=== PATIENT | female | born 1980 | race Caucasian/White ===

== ENCOUNTER → 2017-06-05 | Outpatient (CLI) | payer BC ==
--- NOTE | 2017-06-05 16:10 | RAD ---
Thyroid ultrasound, 06/05/2017: History: Thyroid nodules, autoimmune thyroiditis The right lobe of the gland measures 5.9 x 1.3 x 1.2 cm while the left lobe of the gland measures 5.2 x 1.2 x 1.1 cm. The thyroid echo pattern is mildly heterogeneous. In the posterior aspect of the lower pole of the right lobe of the gland there is a faint smooth oval-shaped nodule measuring approximately 1.6 cm in length. It is only slightly hypoechoic relative to the remainder of the gland. It is wider than tall. It is of similar size when compared to the 11/29/2015 exam at which time it was measured at 1.7 cm. No calcifications or highly suspicious features are seen. There are 3 additional smaller smooth nodules in the left lobe of the gland. The largest of these lies inferomedially along the margin of the gland and measures 7 x 4 mm. It is smooth and nearly cystic in appearance. A smaller tiny cystic appearing 2 mm nodule is seen in the lower pole of left kidney. In the upper pole of left lobe there is a 4 mm nodule which is slightly hypoechoic relative to the remainder of the gland. These nodules have shown no significant change since 11/29/2015. IMPRESSION: Stable bilateral thyroid nodules as described above.
== END | disposition home or self-care (01) ==
LOC: US 14:50
PROVIDERS: ATTEND Family Medicine
DX: E06.3 Autoimmune thyroiditis (principal); E04.2 Nontoxic multinodular goiter
CPT/HCPCS: 76536